=== PATIENT | male | born 1990 | race Caucasian/White ===

== ENCOUNTER 2024-11-09 13:30 | Emergency (ER) | payer MEDICAID, SELFPAY ==
[2024-11-09 14:05] VITALS: BP 126/75; PULSE 87; RESP 18; TEMP 36.9; O2SAT 99; BMI 33.6
--- NOTE | 2024-11-09 14:06 | XR_ITS ---
Examination: CT abdomen and pelvis without contrast. Coronal 3-D reconstructions. Sagittal 2-D reconstructions. Date and time of exam:November 09, 2024 1436 hours INDICATIONS: Generalized abdominal pain with hematuria beginning 2 hours ago COMPARISON: January 15, 2022 CTDI: vol (mGy): 11.5 DLP: (mGycm): 812 Technique: Axial images of the abdomen have been obtained, 3 mm slice thickness Intravenous contrast material has not been administered. Low dose protocols were performed. One or more of the following dose reduction techniques were used; automated exposure control, adjustment of the mA and/or KV according to patient size, use of iterative reconstruction technique. Findings: No focal liver or splenic lesions Mild splenomegaly Suspicious for tiny gallstones No pancreatic or adrenal mass Minimal perinephric stranding 1 mm lower pole right renal calculus image 107 No hydronephrosis Aorta normal size No bowel obstruction Normal appendix Scattered colonic diverticulosis Contracted urinary bladder IMPRESSION: 1 mm nonobstructing right renal calculus No hydronephrosis or ureteral calculi
--- NOTE | 2024-11-09 14:06 | PD.EDRME ---
Rapid Medical Screening Exam RME Arrival date/time: 11/09/24 13:30 33-year-old male presents to the emergency department complains of abdominal pain Chief Complaint: Urogenital-Male Vital signs: Vital Signs Temperature 98.5 F 11/09/24 14:05 Pulse Rate 87 11/09/24 14:05 Respiratory Rate 18 11/09/24 14:05 Blood Pressure 126/75 11/09/24 14:05 Pulse Oximetry (%) 99 11/09/24 14:05 Oxygen Delivery Method Room Air 11/09/24 14:05
[2024-11-09 15:10] LABS: Collection Type, Urine Clean Catch; Squamous Epithelial Cell,Urine 0 /hpf (0-5)
[2024-11-09 15:16] LABS: Basophils # (Auto) 0.1 Thou/mm3 (0.0-0.2); Basophils % (Auto) 1 % (0-2.5); Eosinophils # (Auto) 0.3 Thou/mm3 (0.0-0.5); Eosinophils % (Auto) 4 % (0-10); Hemoglobin 13.8 g/dL (13.5-16.0); Immature Granulocytes % (Auto) 0 % (0-0); Immature Granulocytes Auto 0.02 Thou/mm3 (0.00-0.00); Lymphocytes # (Auto) 2.3 Thou/mm3 (1.0-4.8); Lymphocytes % (Auto) 29 % (10-50); Mean Corpuscular HGB Conc 33.7 g/dl (31.0-37.0); Mean Corpuscular Hemoglobin 28.6 pg (25.0-35.0); Mean Corpuscular Volume 85 fL (80-100); Monocytes # (Auto) 0.5 Thou/mm3 (0.0-0.8); Monocytes % (Auto) 6 % (0-12); Neutrophils # (Auto) 4.9 Thou/mm3 (1.8-7.7); Neutrophils % (Auto) 61 % (37-80); Nucleated Red Blood Cell % 0 /100 WBC (0); Platelet Count 214 Thou/mm3 (140-440); RDW Standard Deviation 41.7 fL (35.1-43.9); Red Blood Count 4.83 Miln/mm3 (4.50-5.90); White Blood Count 8.1 Thou/mm3 (3.8-10.6)
[2024-11-09 15:24] LABS: Bilirubin,Urine Negative (Negative); Blood,Urine 3+ (Negative); Budding Yeast,Urine Present; Color,Urine Dark-Brown (Lt Yel-Yel); Glucose, Urine Negative (Negative); Ketones,Urine Negative (Negative); Leukocyte Esterase,Urine Positive (Negative); Nitrite,Urine Negative (Negative); Protein,Urine 2+ (Neg - Trace); RBC,Urine 5758 /hpf (0-3); Specific Gravity,Urine 1.029 (1.001-1.035); Urobilinogen,Urine Negative mg/dL (0.0-1.0); WBC,Urine 221 /hpf (0-5)
[2024-11-09 15:26] LABS: Clarity,Urine Bloody (Clear/Hazy); Culture Indicated,Urine Yes
[2024-11-09 15:40] LABS: Alanine Aminotransferase 29 U/L (10-49); Albumin, Serum 5.2 gm/dL (3.5-5.0); Albumin/Globulin Ratio 2.5 (1.2-2.2); Alkaline Phosphatase 46 U/L (46-116); Anion Gap 9 (7-16); Aspartate Amino Transferase 19 U/L (0-34); BUN/Creatinine Ratio 10 Ratio (12-20); Bilirubin,Total 0.5 mg/dL (0.3-1.2); Blood Urea Nitrogen 9 mg/dL (9-23); Chloride 110 mMol/L (98-107); Creatinine (Component) 0.9 mg/dL (0.6-1.3); Estimated Creatinine Clearance 151.2 mL/min (>60); Globulin 2.1 gm/dL (2.3-3.5); Glucose 136 mg/dL (74-106); Lipase 129 U/L (12-53); Osmolality,Calculated 285 (275-295); Potassium 3.8 mMol/L (3.4-5.1); Sodium 143 mMol/L (136-145); Total Protein 7.3 gm/dL (5.7-8.2); eGFR > 60 See Note
--- NOTE | 2024-11-09 17:47 | PD.EDADULT ---
ED General RME/HPI General Chief complaint: Urogenital-Male Stated complaint: BLOOD IN URINE X NOON Time Seen by Provider: 11/09/24 17:39 Arrival date/time: 11/09/24 13:30 RME / HPI RME / HPI narrative: 33-year-old male patient with no significant medical history, came in for evaluation regarding hematuria. Onset of symptoms about noon today patient noticed some blood streak in the urine. Associated with lower abdominal discomfort. Patient denies any vomiting denies any fever denies any other complaints. No medication was taken prior to arrival. Related Data Home Medications ?Medication ?Instructions ?Recorded ?Confirmed topiramate 100 mg tablet 100 mg PO BID PRN Pain 08/09/18 02/26/19 Previous Rx's ?Medication ?Instructions ?Recorded loperamide 2 mg-simethicone 125 mg 1 tab PO Q3H PRN loose stool #10 08/18/21 tablet tabs ciprofloxacin HCl 500 mg tablet 500 mg PO BID #10 tabs 01/15/22 (Cipro) metronidazole 500 mg tablet 500 mg PO BID #10 tabs 01/15/22 cefuroxime axetil 500 mg tablet 500 mg PO BID #14 tabs 11/09/24 Allergies Allergy/AdvReac Type Severity Reaction Status Date / Time No Known Allergies Allergy Verified 11/09/24 13:31 Review of Systems Review of Systems Narrative Review of Systems: Review of system reviewed and within normal limits except mentioned in HPI ED Exam Narrative Physical exam: VITAL SIGNS: Reviewed. GENERAL APPEARANCE: Alert and interactive, follows commands, no acute distress, HEAD AND FACE: Non-traumatic. ENT: PERRL, pink conjunctivitis, eyelid no trauma, Mucous membrane moist. NECK: Supple, nontender, no nuchal rigidity. CHEST: No tenderness, no crepitus, no paradoxical movement, no retractions. LUNGS: Clear, well ventilated, symmetric, no rales, no wheezing, no ronchi, no stridor, good breath sounds bilaterally. HEART: Regular rate, regular rhythm, no murmur, no gallops. ABDOMEN: Soft, positive bowel sounds, nondistended, no guarding, nontender, no rebound, no masses, RECTAL: Deferred. GENITAL: Deferred. NEUROLOGICAL: Gross motor function intact sensory function intact, Appropriate for age. MUSCULOSKELETAL: low back nontender, full range of motion. EXTREMITIES: Nontender, full range of motion. SKIN: Color pink, dry, no rash, no lacerations, no abrasions, no contusions. LYMPHATICS: Deferred. Course Quality Measures none Orders Category Date Time Status CT abdomen pelvis wo con Stat Exams 11/09/24 14:06 Completed CBC Stat Lab 11/09/24 14:59 Completed Comprehensive Metabolic Panel Stat Lab 11/09/24 14:59 Completed Lipase Stat Lab 11/09/24 14:59 Completed UA, C/S IF [Urinalysis, C/S if Indicated] Stat Lab 11/09/24 15:04 Completed Urine Culture Stat Lab 11/09/24 15:04 Received cefTRIAXone [Rocephin] 1,000 mg Med 11/09/24 17:44 Discontinued Lidocaine 1% 20 ml [Xylocaine 1% 20 ML] 2.1 ml IM X1 Vital Signs Vital signs: Vital Signs Temperature 98.5 F 11/09/24 14:05 Pulse Rate 87 11/09/24 14:05 Respiratory Rate 18 11/09/24 14:05 Blood Pressure 126/75 11/09/24 14:05 Pulse Oximetry (%) 99 11/09/24 14:05 Oxygen Delivery Method Room Air 11/09/24 14:05 [facility] Patient data External records reviewed:: None Clinical information provided by:: none Social determinants that could affect healthcare access:: none Patient has the following chronic illnesses:: None How is presenting disease/condition affected by chronic disease/condition?: no chronic disease Evaluation data The following diagnostics were reviewed and interpreted by me:: lab results and radiology exam(s) Lab and/or radiology exams considered but not ordered:: None Interpretation Summary: See results in MDM Medications Medications considered but not ordered:: None Medication administrations:: Medication Administration History Discontinued Medications Ceftriaxone Sodium 1,000 mg/ (Lidocaine HCl 2.1 ml) 0 mg IM X1 ONE Stop: 11/09/24 17:45 Ceftriaxone IM Consultations Consultation(s) initiated? (list below): No Diagnosis Differential Diagnosis ED Complaint MDM: Hematuria, UTI, renal colic, nephrolithiasis Most likely diagnosis given after review of the tests above:: UTI, hematuria Admission Indicated Admission indicated?: not indicated Explain why admission is indicated or not indicated:: Stable for discharge Admission Request Was there a request for admission?: No Disposition Plan Disposition Plan: Discharge Discharge Attestation Discharge Attestation: The patient and all family members were given an opportunity to ask questions and understood the discharge instructions. Discharge instructions specifically effects, indications for sooner follow up or return to the emergency department, and the expected course of current diagnosis. Patient condition: Stable Medical Decision Making MDM Narrative MDM Narrative: 33-year-old male patient with no significant medical history, came in for evaluation regarding hematuria. Onset of symptoms about noon today patient noticed some blood streak in the urine. Associated with lower abdominal discomfort. Patient denies any vomiting denies any fever denies any other complaints. No medication was taken prior to arrival. CT scan of the abdomen pelvis came back unremarkable except for tiny renal stone. Urinalysis positive for hematuria and UTI. Differential Diagnosis Differential Diagnosis: Hematuria, UTI, renal colic, nephrolithiasis Lab Data 11/09/24 14:59 11/09/24 14:59 Labs: Lab Results 11/09/24 11/09/24 Range/Units 14:59 15:04 WBC 8.1 (3.8-10.6) Thou/mm3 RBC 4.83 (4.50-5.90) Miln/mm3 Hgb 13.8 (13.5-16.0) g/dL Hct 41.0 (41.0-53.0) % MCV 85 (80-100) fL MCH 28.6 (25.0-35.0) pg MCHC 33.7 (31.0-37.0) g/dl RDW Std Deviation 41.7 (35.1-43.9) fL Plt Count 214 (140-440) Thou/mm3 Neut % (Auto) 61 (37-80) % Lymph % (Auto) 29 (10-50) % [place] % (Auto) 6 (0-12) % Eos % (Auto) 4 (0-10) % Baso % (Auto) 1 (0-2.5) % Neut # (Auto) 4.9 (1.8-7.7) Thou/mm3 Lymph # (Auto) 2.3 (1.0-4.8) Thou/mm3 [place] # (Auto) 0.5 (0.0-0.8) Thou/mm3 Eos # (Auto) 0.3 (0.0-0.5) Thou/mm3 Baso # (Auto) 0.1 (0.0-0.2) Thou/mm3 Immature Gran # (Auto) 0.02 H (0.00-0.00) Thou/mm3 Absolute Nucleated RBC 0.00 (0.00-0.00) Thou/mm3 Immature Gran % 0 (0-0) % Nucleated RBC % 0 (0) /100 WBC Sodium 143 (136-145) mMol/L Potassium 3.8 (3.4-5.1) mMol/L Chloride 110 H (98-107) mMol/L Carbon Dioxide 24.0 (20.0-31.0) mMol/L Anion Gap 9 (7-16) BUN 9 (9-23) mg/dL Creatinine 0.9 (0.6-1.3) mg/dL Estim Creat Clear Calc 151.2 (>60) mL/min eGFR > 60 (60 - ) See Note BUN/Creatinine Ratio 10 L (12-20) Ratio Glucose 136 H (74-106) mg/dL Calculated Osmolality 285 (275-295) Calcium 10.0 (8.3-10.6) mg/dL Corrected Calcium 10.0 (8.5-10.1) mg/dL Total Bilirubin 0.5 (0.3-1.2) mg/dL AST 19 (0-34) U/L ALT 29 (10-49) U/L Alkaline Phosphatase 46 (46-116) U/L Total Protein 7.3 (5.7-8.2) gm/dL Albumin 5.2 H (3.5-5.0) gm/dL Globulin 2.1 L (2.3-3.5) gm/dL Albumin/Globulin Ratio 2.5 H (1.2-2.2) Lipase 129 H (12-53) U/L Ur Collection Type Clean Catch Urine Color Dark-Brown (Lt Yel-Yel) Urine Clarity Bloody A (Clear/Hazy) Urine pH 6.0 (5.0-7.0) Ur Specific [place] 1.029 (1.001-1.035) Urine Protein 2+ A (Neg - Trace) Urine Glucose (UA) Negative (Negative) Urine Ketones Negative (Negative) Urine Blood 3+ A (Negative) Urine Nitrite Negative (Negative) Urine Bilirubin Negative (Negative) Urine Urobilinogen (Auto) Negative (0.0-1.0) mg/dL Ur Leukocyte Esterase Positive (Negative) Urine RBC 5758 H (0-3) /hpf Urine WBC 221 H (0-5) /hpf Ur Squamous Epith Cells 0 (0-5) /hpf Urine Bacteria None (None) Urine Yeast (Budding) Present A (None) Ur Culture Indicated? Yes Discharge Plan Plan Patient Disposition: HOME (Self Care) Disposition Comment: stable Prescriptions/Referrals Prescriptions/Med Rec: New cefuroxime axetil 500 mg tablet 500 mg PO BID Qty: 14 0RF No Action topiramate 100 mg Tablet 100 mg PO BID PRN (Reason: Pain) loperamide-simethicone 2-125 mg tablet 1 tab PO Q3H PRN (Reason: loose stool) Qty: 10 0RF Rx Instructions: do not exceed 4 tabs in 24 hrs ciprofloxacin HCl [Cipro] 500 mg tablet 500 mg PO BID Qty: 10 0RF metronidazole 500 mg tablet 500 mg PO BID Qty: 10 0RF Referrals: Nicky Alvarez FNP [Primary Care Provider] - In 1 week Problem List Clinical Impression: Urinary tract infection, Hematuria Patient/Caregiver Discharge Instructions Discharge Activity: activity as tolerated Education Materials: Understanding Urinary Tract ..., ED Hematuria Additional Instructions: Thank you for the opportunity for serving you today. You are stable for discharged . You are advised to: Follow-up with your PCP in 1 to 2 days Return to ED for worsening of symptoms Increase oral fluids Print Language: Greenlandic Stand Alone Forms: Johnna Award Info., Work/School Release, Patient Portal Info Letter
[2024-11-09] MEDS: cefTRIAXone 1,000 MG, LIDOCAINE 1% 20 ML 2.1 ML IM (18:09)
== END 2024-11-09 18:59 | disposition home or self-care (01) ==
PROVIDERS: Nurse Practitioner Primary Care; Emergency Provider Emergency Medicine; PCP Nurse Practitioner Family
DX: N39.0 Urinary tract infection, site not specified (principal); R31.9 Hematuria, unspecified
CPT/HCPCS: 36415; 74176; 80053; 81001; 83690; 85025; 87086; 96372; 99284; J0696; J3490

== ENCOUNTER 2025-01-20 09:54 | Emergency (ER) | payer OTHER, MEDICAID, SELFPAY ==
[2025-01-20 09:55] VITALS: BMI 30.5
[2025-01-20 10:08] VITALS: BP 152/90; PULSE 67; RESP 19; TEMP 36.8; O2SAT 99; BMI 28.7
--- NOTE | 2025-01-20 10:44 | XR_ITS ---
Examination: Hand, left 2 views Technique: Hand AP, lateral 2 views Date and time of exam: January 20, 2025 at 1057 hrs. Indications: Injury to the hand today, hand pain Findings: Adequate bone density No acute fracture No dislocation Impression: No acute fracture
[2025-01-20] MEDS: HYDROcodone/APAP 5/325 TABLET 1 TAB PO (11:30)
[2025-01-20] MEDS: KETOROLAC INJ 60 MG/2 ML VIAL 30 MG IM (11:31)
--- NOTE | 2025-01-20 16:22 | PD.EDHAND ---
Upper Extremity Injury RME/HPI General Chief Complaint: Hand/Wrist Problems Stated Complaint: LEFT HAND CRUSH INJURY AT WORK YESTERDAY Time Seen by Provider: 01/20/25 10:19 Arrival date/time: 01/20/25 09:54 Limitations: no limitations RME / HPI RME / HPI narrative: 34-year-old male here for work comp injury. States was loading a hitch to a trailer when the trailer slipped and pinned his hand between the van and the hitch crushing his left hand. Did not think much of it until today and now that it is very swollen and difficulty closing it. Injury did not break skin. Was sent over by job today. No other injuries sustained. Related Data Home Medications ?Medication ?Instructions ?Recorded ?Confirmed topiramate 100 mg tablet 100 mg PO BID PRN Pain 08/09/18 02/26/19 Previous Rx's ?Medication ?Instructions ?Recorded loperamide 2 mg-simethicone 125 mg 1 tab PO Q3H PRN loose stool #10 08/18/21 tablet tabs ciprofloxacin HCl 500 mg tablet 500 mg PO BID #10 tabs 01/15/22 (Cipro) metronidazole 500 mg tablet 500 mg PO BID #10 tabs 01/15/22 cefuroxime axetil 500 mg tablet 500 mg PO BID #14 tabs 11/09/24 IBU 800 mg tablet (ibuprofen) 800 mg PO Q6H PRN pain #30 tabs 01/20/25 Allergies Allergy/AdvReac Type Severity Reaction Status Date / Time No Known Allergies Allergy Verified 01/20/25 09:56 Review of Systems Review of Systems Systems Reviewed: All systems reviewed, normal except as documented Musculoskeletal Musculoskeletal: Reports as per HPI ED Exam General Limitations: Present no limitations General appearance: Present alert and in no apparent distress Eye Eye exam: Present normal appearance, PERRL and EOMI Respiratory Respiratory exam: Present normal lung sounds bilaterally Cardiovascular Cardiovascular exam: Present regular rate, normal rhythm and normal heart sounds Abdominal Exam Abdominal exam: Present soft and normal bowel sounds Extremities Exam Extremities exam: Present other (Left hand with edema ecchymosis TTP to dorsum and palmar aspect slow but full range of motion, no snuffbox tenderness no ulnar deviation. No other part of extremities with pain or deformity) Back Exam Back exam: Present normal inspection and full ROM Psychiatric Psychiatric exam: Present normal affect and normal mood Skin Skin exam: Present warm, dry, intact and normal color Course Quality Measures none Orders Category Date Time Status Splint / Immobilizer STAT Care 01/20/25 12:35 Completed XR hand LT 2V Stat Exams 01/20/25 10:44 Completed HYDROcodone*/APAP 5/325 [[place] 5/325] Med 01/20/25 10:44 Discontinued 1 tab PO X1 ONE Ketorolac Inj [Toradol Inj] Med 01/20/25 10:44 Discontinued 30 mg IM X1 ONE Vital Signs Vital signs: Vital Signs Temperature 98.2 F 01/20/25 10:08 Pulse Rate 67 01/20/25 10:08 Respiratory Rate 19 01/20/25 10:08 Blood Pressure 152/90 H 01/20/25 10:08 Pulse Oximetry (%) 99 01/20/25 10:08 Procedures -ED Splint Fabrication: Pre-Fabricated Type: Volar Reason for Splint: Pain Management Site condition: Bruised Circulation Distal to Splint: Yes Movement Distal to Splint: Yes Senation Distal to Splint: Yes Tolerance: Tolerates Well Extremity Injury MDM Narrative MDM Narrative:: Although fracture was suspected x-ray was negative. Splinted and advised follow-up with work comp doctor and should return to ER if symptoms worsen Patient data External records reviewed:: None Clinical information provided by:: patient Social determinants that could affect healthcare access:: other (specify) (Work comp injury) Patient has the following chronic illnesses:: None How is presenting disease/condition affected by chronic disease/condition?: no chronic disease Evaluation data The following diagnostics were reviewed and interpreted by me:: radiology exam(s) Lab and/or radiology exams considered but not ordered:: All imaging was considered was ordered Interpretation Summary: No fracture noted to hand Medications / Prescriptions Medications or Prescriptions considered but not ordered:: NSAIDs and narcotics were considered however narcotics have potential worsening side effects Medication administrations:: Medication Administration History Discontinued Medications Hydrocodone Bitart/Acetaminophen (Hydrocodone/Apap 5/325 Tablet) 1 tab PO X1 ONE Stop: 01/20/25 10:45 Last Admin: 01/20/25 11:30 Dose: 1 tab Documented By: JACKELIN Ketorolac Tromethamine (Ketorolac Inj 60 Mg/2 Ml Vial) 30 mg IM X1 ONE Stop: 01/20/25 10:45 Last Admin: 04/05/25 11:31 Dose: 30 mg Documented By: JACKELIN Prescription sent home Consultations Consultation(s) initiated? (list below): No Diagnosis Upper Extremity Injury Differential Diagnosis: sprain and strain of wrist, fracture of wrist, finger sprain and other Most likely diagnosis given after review of the tests above:: Here left hand contusion Admission Indicated Admission indicated?: not indicated Admission Request Was there a request for admission?: No Disposition Plan Disposition Plan: Discharge Discharge Attestation Discharge Attestation: The patient and all family members were given an opportunity to ask questions and understood the discharge instructions. Discharge instructions specifically effects, indications for sooner follow up or return to the emergency department, and the expected course of current diagnosis. Patient condition: Stable Discharge Plan Plan Patient Disposition: HOME (Self Care) Disposition Comment: Follow-up with work comp doctor in 2 to 3 days Prescriptions/Referrals Prescriptions/Med Rec: New ibuprofen [IBU] 800 mg tablet 800 mg PO Q6H PRN (Reason: pain) Qty: 30 0RF No Action topiramate 100 mg Tablet 100 mg PO BID PRN (Reason: Pain) loperamide-simethicone 2-125 mg tablet 1 tab PO Q3H PRN (Reason: loose stool) Qty: 10 0RF Rx Instructions: do not exceed 4 tabs in 24 hrs ciprofloxacin HCl [Cipro] 500 mg tablet 500 mg PO BID Qty: 10 0RF metronidazole 500 mg tablet 500 mg PO BID Qty: 10 0RF cefuroxime axetil 500 mg tablet 500 mg PO BID Qty: 14 0RF Referrals: Pearl Alvarez PA-C [Primary Care Provider] - In 1 week Problem List Clinical Impression: Contusion of hand Patient/Caregiver Discharge Instructions Education Materials: ED Hand Contusion Print Language: Turkish Stand Alone Forms: Johnna Award Info., Work/School Release, Patient Portal Info Letter PA/HOA Supervising Physician PA/HOA Supervising Physician: dr. best
== END 2025-01-20 12:50 | disposition home or self-care (01) ==
PROVIDERS: Emergency Provider Emergency Medicine; PCP Physician Assistant Medical
DX: S60.222A Contusion of left hand, initial encounter (principal); W23.0XXA Caught, crushed, jammed, or pinched between moving objects, initial encounter; Y92.818 Other transport vehicle as the place of occurrence of the external cause; Y99.0 Civilian activity done for income or pay
CPT/HCPCS: 73120; 96372; 99283; J1885; A9270